=== PATIENT | male | born 1970 | race Two or more races ===

== ENCOUNTER 2023-06-26 10:21 | Emergency (ER) | payer OTHER ==
[~2023-06-26] VITALS: Ht 162.6 cm; Wt 72.1 kg
[2023-06-26 11:37] VITALS: BP 120/61; PULSE 78; RESP 16; TEMP 98.2; O2SAT 100
[2023-06-26] MEDS ORDERED: ACYC400T16 PO (11:52)
== END 2023-06-26 13:37 | disposition home or self-care (01) ==
LOC: ER 10:21
DX: B00.9 Herpesviral infection, unspecified (principal)

== ENCOUNTER 2023-06-26 13:26 | Emergency (ER) | payer OTHER ==
[~2023-06-26] VITALS: Ht 162.6 cm; Wt 72.6 kg
[~2023-06-26 13:26] MED LIST: ACYC400T16 PO
[2023-06-26 13:45] VITALS: BP 113/63; PULSE 78; RESP 16; O2SAT 99
== END 2023-06-26 14:11 | disposition left against medical advice (07) ==
LOC: ER 13:26
DX: R50.9 Fever, unspecified (principal); Z53.21 Procedure and treatment not carried out due to patient leaving prior to being seen by health care provider